=== PATIENT | male | born 1955 | race Caucasian/White ===

== ENCOUNTER → 2024-04-30 06:34 | Day surgery (SDC) | payer MEDICARE, OTHER, SELFPAY | LOC: GI 06:34 | PROVIDERS: ATTENDING PHYSICIAN Internal Medicine Gastroenterology | DX: Z12.11 Encounter for screening for malignant neoplasm of colon (principal); K57.30 Diverticulosis of large intestine without perforation or abscess without bleeding; K64.8 Other hemorrhoids; Z86.010 Personal history of colon polyps | CPT/HCPCS: 45378 ==

== ENCOUNTER 2024-06-01 22:46 | Emergency (ER) | payer MEDICARE, OTHER, SELFPAY ==
[2024-06-01 22:48] VITALS: BP 187/128
[2024-06-01 23:29] VITALS: BP 166/114
[2024-06-02] VITALS (8 sets, daily range): BP systolic 114–149; BP diastolic 76–114; BMI 29.0
[2024-06-02] MEDS: NSS 1000 IV (00:28)
[2024-06-02 00:38] LABS: % Basophils 0.8 % (0-2); % Eosinophils 3.5 % (0-6); % Immature Granulocytes 0.3 % (0-0.5); % Lymphocytes 22.3 % (20.5-51.1); % Monocytes 11.3 % (1.7-9.3); % Neutrophils 61.8 % (42.2-75.2); Absolute Basophils 0.1 10^3/uL (0-0.2); Absolute Eosinophils 0.2 10^3/uL (0-0.7); Absolute Lymphocytes 1.3 10^3/uL (1.2-3.4); Absolute Monocytes 0.7 10^3/uL (0.1-0.6); Absolute Neutrophils 3.7 10^3/uL (1.4-6.5); Hematocrit 38.4 % (39.0-52.0); Hemoglobin 13.4 g/dL (13.0-18.0); Mean Corp Hgb Conc. 34.9 g/dL (33.0-37.0); Mean Corpuscular Hgb 30.7 pg (27.0-31.0); Mean Corpuscular Volume 88.1 fL (80.0-94.0); Mean Platelet Volume 9.5 fL (7.4-10.4); Nucleated Red Blood Cells % 0 % (-); Platelet Count 196 10^3/uL (130-400); Red Blood Cell Count 4.36 10^6/uL (4.70-6.10); Red Cell Dist. Width 12.7 % (11.5-14.5); White Blood Cell Count 5.9 10^3/uL (4.8-10.8)
[2024-06-02 00:53] LABS: ALT (SGPT) 19 U/L (0-50); AST (SGOT) 30 U/L (17-59); Albumin 4.8 g/dl (3.5-5.0); Alkaline Phosphatase 79 U/L (38-126); Blood Urea Nitrogen 20 mg/dl (9-20); Calcium 9.7 mg/dl (8.4-10.2); Carbon Dioxide 25 mmol/L (22-30); Chloride 106 mmol/L (98-107); Estimated Creatinine Clearance 91 ml/min; Glucose 93 mg/dl (70-99); INR 1.08; PT 13.8 Sec (11.4-14.6); Potassium 4.5 mmol/L (3.5-5.1); Sodium 142 mmol/L (135-145); Total Bilirubin 0.4 mg/dl (0.2-1.3); eGFR > 60.00
[2024-06-02 01:04] LABS: Troponin I < 0.012 ng/ml
--- NOTE | 2024-06-02 01:24 | ED.GENMED ---
History of Present Illness
General
Chief Complaint: Heart Rate Problem
Time Seen by Provider: 06/01/24 23:28
History of Present Illness
History of Present Illness:
68-year-old male with history of Parkinson's, hyperlipidemia, history of CAD status post stenting, hypertension presenting to the emergency department for swelling to the left ankle. Patient arrives with , and they note that earlier this
evening, they noted that his left ankle was swollen. is a nurse. She checked his heart rate, and it was elevated. She then checked his blood pressure, also elevated. They waited a few hours, however vitals did not improve, prompting him to
come to the hospital. They report that yesterday they return from a 5-hour car ride. Patient otherwise denies any history of blood clots. He denies any difficulty breathing or chest pain. He denies any palpitations. He denies any pain to the
lower extremity or any numbness or tingling. He denies fever or systemic symptoms. He denies additional acute medical complaints.
Past History
Past History
ED Past Medical History: HTN, Hypercholesterolemia and Other (Parkinson's)
Social History
Tobacco: Non-smoker
Personal:
Employment: Employed
Phy Exam
Physical Exam
Physical Exam:
General: Well-appearing, no clinical signs of dehydration, nontoxic and in no acute distress
HEENT: protecting airway
Neck: appears supple
CV: Tachycardic, regular rhythm, no evidence of cyanosis
Resp: No accessory muscle use, no increased work of breathing, lungs clear to auscultation bilaterally
Abd: Soft and non-distended, no tenderness to palpation, normal bowel sounds
Extremities: No deformities, mild swelling to the left ankle. No redness or warmth. Distal sensation and pulses intact. No pain to palpation.
Neuro: alert, no focal neurologic deficit
: deferred
Rectal: deferred
Psych: Normal affect
Skin: Intact
Scores
[id number] Score for Afib Stroke Risk
Age in Years (65=0, 65-74=1, >/=75=2): 65-74
Sex (Female=+1): Male
Congestive Heart Failure History (Yes=+1): No
Hypertension History (Yes=+1): Yes
Stroke/TIA/Thromboembolism History (Yes=+2): No
Vascular Disease History (Yes=+1): Yes
Diabetes Mellitus (Yes=+1): No
Score: 3
Anticoagulation Recommendations: Recommend anticoagulation (as validated in nonvalvular fib)
Course
Orders/Labs/Results
Orders:
Orders
06/01/24 22:51
Electrocardiogram (*1) Urgent
Reason for Study: Palpitations
06/01/24 22:52
EKG- Treatment ONCE
06/02/24 00:02
0.9% Sodium Chloride 1000 ml [Nss] 1,000 ml IV BOLUS
06/02/24 00:03
CT Chest Pe Study Urgent
Comment:
Reason For Exam: tachy, LLE swelling
US Periph Venous LOWER Ext LT Urgent
Comment:
Reason For Exam: swelling, recent travel
06/02/24 00:26
Complete Blood Count/With Diff Urgent
Comprehensive Metabolic Panel Urgent
PTT Urgent
Prothrombin Time Urgent
Troponin I Urgent
06/02/24 02:11
Diltiazem HCl [Cardizem] 15 mg IV NOW STA
06/02/24 02:28
Metoprolol [Lopressor] 5 mg IV NOW STA
06/02/24 02:39
EKG [Electrocardiogram (*1)] Urgent
Reason for Study: Atrial Fibrillation
EKG- Treatment ONCE
06/02/24 02:53
Apixaban [Eliquis] 5 mg PO NOW STA
Abnormal Lab Results
06/02/24
00:26
RBC 4.36 L 10^6/uL
(4.70-6.10)
Hct 38.4 L %
(39.0-52.0)
Absolute Monos (auto) 0.7 H 10^3/uL
(0.1-0.6)
Monocytes % 11.3 H %
(1.7-9.3)
06/02/24 00:26
06/02/24 00:26
Vital Signs
Initial and Last Documented VS:
Initial Vital Signs
Temp Pulse Resp BP Pulse Ox
98.1 F 132 17 187/128 98
06/01/24 22:48 06/01/24 22:48 06/01/24 22:48 06/01/24 22:48 06/01/24 22:48
Last Documented Vital Signs
Temp Pulse Resp BP Pulse Ox
98.1 F 116 13 143/98 98
06/01/24 22:48 06/02/24 02:00 06/02/24 02:00 06/02/24 01:30 06/02/24 00:29
MDM/Problems Addressed
MDM/Problems Addressed:
68-year-old male with history of Parkinson's disease, hypertension, CAD with stenting presenting for swelling to the left ankle with tachycardia. Vital signs on arrival significant for tachycardia and hypertension.
On exam, patient resting comfortably, no acute distress or discomfort. Overall benign examination with the exception of patient's heart rate. EKG obtained, appears sinus. Patient does have swelling to the left ankle without pain or redness. No
signs of infection. Patient reports recent travel, 5-hour car ride. In the setting of left lower extremity swelling, tachycardia, travel, immediate concern for PE. Patient high risk so plan for CT PE study. Will also obtain DVT ultrasound and
laboratory analysis. Patient otherwise without chest pain, lower suspicion for ACS.
01:00 - Labs unremarkable. DVT ultrasound negative. Pending CT chest. Blood pressure has improved without intervention.
02:20 -patient's heart rate remains elevated, and consistently jumping up and down, concern for possible atrial fibrillation. Trial of diltiazem, without significant impact. Will try metoprolol and repeat EKG. Patient not candidate for
cardioversion, unclear when abnormal heart rate began.
03:00 -heart rate now controlled after metoprolol. Repeat EKG shows a flutter at a rate of 84. Patient remains asymptomatic. Blood pressure has normalized. On reassessment, patient now appears to be sinus rhythm, HR 60-70s. At this suspect
paroxysmal A-fib/a flutter. Patient's Ernesto Vasc score is 3. Feel patient warrants anticoagulation. Given that he is currently rate controlled, on metoprolol at baseline, follows with cardiology, feel reasonable to be discharged with close
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 Will start on Eliquis. Patient and at bedside in agreement. Strict return precautions however were communicated and patient verbalized understanding
*EKG
Interpreted by ED Provider?: Yes
EKG Intrepretation Date: 06/02/24
EKG Intrepretation Time: 00:15
Interpretation: abnormal
Comparison EKG: changes noted
Heart Rate: 119
Rate: tachycardiac
Rhythm: sinus
[place]: normal axis
Interval: normal interval
QRS Pattern: normal QRS
Ischemia: non-specific ST changes
*Critical Care Note
Total Time (30-74mins, 75-104mins- exclusive of procedures): Not Applicable
ED Attending Note
-
Portions of this chart may have been created with voice recognition software.� Occasional wrong word or��sound alike� substitutions may have occurred due to the inherent limitations of voice recognition software.
Discharge Plan
Departure
Patient Disposition: Home (Routine Discharge)
Date of Disposition: 06/02/24
Time of Disposition: 03:03
Patient with high blood pressure during this ER visit?: Yes
Condition: Good
Discharge Problem:
HTN (hypertension), Atrial fibrillation and flutter
Instructions: Atrial Fibrillation (DC), BLOOD PRESSURE
Prescriptions:
New
Eliquis 5 mg tablet
5 mg PO BID 30 Days Qty: 60 0RF
No Action
aspirin 81 MG tablet,chewable
81 mg PO DAILY
ramipril 10 MG capsule
5 mg PO DAILY
Centrum 1 EACH tablet
1 tab PO DAILY
atorvastatin 20 MG tablet
20 mg PO QPM Qty: 90 3RF
metoprolol succinate 25 MG tablet extended release 24 hr
25 mg PO DAILY Qty: 90 3RF
nitroglycerin 0.4 MG tablet, sublingual
0.4 mg sublingual [id number] PRN (Reason: chest pain)
gabapentin 300 MG capsule
600 mg PO HS
carbidopa-levodopa 1 TABLET tablet
1.5 tab PO QID
rasagiline [Azilect] 1 MG tablet
0.5 mg PO DAILY
omega 0-cvz-tzj-fish oil 1 EACH capsule
1,200 mg PO HS
gabapentin 300 MG capsule
300 mg PO DAILY
Referrals:
Blaze Gusman Jr., DO [Family Provider] -
Remigio Damon DO [Active] - (new onset atrial fibrillation)
Activity Restrictions/Additional Instructions:
You were seen in the emegency department for elevated heart rate
You were found to have atrial fibrillation. You were started on Eliquis which is a blood thinner. Please take twice a day. You are already on metoprolol, which will help control your heart rate. If your heart rate is greater than 100 without
exertional activity, take an additional tablet. Please call your high school music director for an appointment as soon as possible.
Please follow-up closely with your primary care physician.
Return to the emergency department for any worsening of your symptoms, or any development of chest pain, difficulty breathing, abdominal pain with persistent vomiting and inability to tolerate food or liquid by mouth (concern for dehydration),
weakness, lightheadedness, feeling like you are going to pass out, headache or confusion, fever greater than 100.4, or any additional symptoms that are concerning to you.
Thank you for choosing [facility].
Interventions
Interventions:
*Risk Screen - Suicide Last Done: 06/02/24 00:35
*General Assessment Last Done: 06/02/24 00:29
*Neglect/Abuse Screening Last Done: 06/02/24 00:35
ED- Fall Risk Assessment Last Done: 06/02/24 00:29
*ED COVID-19 Vaccine History Last Done: 06/02/24 00:29
ED- Cardiac Assessment Last Done: 06/02/24 00:29
ED- Pulmonary Assessment Last Done: 06/02/24 00:29
Discharge Date and Time
Print Language: ROMANIAN
[2024-06-02] MEDS: CARDIZEM 15 MG IV (02:19)
[2024-06-02] MEDS: LOPRESSOR 5 MG IV (02:43)
[2024-06-02] MEDS: ELIQUIS 5 MG PO (03:37)
== END 2024-06-02 03:40 | disposition home or self-care (01) ==
LOC: EMR 22:46
PROVIDERS: EMERGENCY PHYSICIAN Student in an Organized Health Care Education/Training Program; FAMILY PHYSICIAN Family Medicine
DX: M25.472 Effusion, left ankle (principal); R60.0 Localized edema; I48.91 Unspecified atrial fibrillation; I10 Essential (primary) hypertension; I48.92 Unspecified atrial flutter; G20.A1 Parkinson's disease without dyskinesia, without mention of fluctuations; I25.10 Atherosclerotic heart disease of native coronary artery without angina pectoris; E78.00 Pure hypercholesterolemia, unspecified; Z88.0 Allergy status to penicillin
CPT/HCPCS: 96361; 71275; 80053; 84484; 85025; 85610; 85730; 93005; 93971; 96374; 96375; 99284; Q9967

== ENCOUNTER → 2024-06-20 12:45 | Outpatient (REF) | payer MEDICARE, OTHER, SELFPAY | LOC: RCS 12:45 | PROVIDERS: ATTENDING PHYSICIAN Physician Assistant; FAMILY PHYSICIAN Family Medicine | DX: I48.92 Unspecified atrial flutter (principal); I10 Essential (primary) hypertension; I77.9 Disorder of arteries and arterioles, unspecified | CPT/HCPCS: 93306 ==

== ENCOUNTER → 2024-07-19 06:42 | Day surgery (SDC) | payer MEDICARE, OTHER, SELFPAY ==
--- NOTE | 2024-07-19 09:37 | ITS.CL.CARDI ---
[employer] - Cardioversion
Cardioversion
Procedure Report:
Procedure: SELIN-guided electrical cardioversion
Pre-operative diagnosis: Persistent atrial flutter
Post-operative diagnosis: Persistent atrial flutter status post DC cardioversion to sinus rhythm
Anesthesia: MAC
Attending Physician: Charles Flores MD
Procedure Description: The patient was brought to the electrophysiology laboratory in the fasting state. Informed consent was obtained from the patient prior to the start of the procedure. Adherence to anticoagulation was confirmed. Electrodes were
placed on the patient and connected to an external defibrillator. Monitoring of blood pressure, ECG tracings, and pulse oximetry was initiated. The pads were applied to the patient in the anterior and posterior positions. The patient was sedated by
the anesthesiologist. A SELIN (reported separately) was performed prior to the cardioversion. No left atrial or left atrial appendage thrombus was seen. After the SELIN probe was removed 50, 200 and 360 joule biphasic synchronized shocks were delivered
to the patient under MAC anesthesia. Sinus rhythm was successfully restored. The patient recovered uneventfully from MAC anesthesia. There were no immediate post-procedure complications. The patient left the lab in good condition. The attending
physician was present throughout the entire procedure.
Impression: Successful SELIN-guided direct current cardioversion with zoroastrian of sinus rhythm after 50, 200 and 360 joule biphasic synchronized shocks.
== END ==
LOC: CATH 06:42
PROVIDERS: ATTENDING PHYSICIAN Internal Medicine Cardiovascular Disease; FAMILY PHYSICIAN Family Medicine; OTHER PHYSICIAN Nuclear Medicine Nuclear Cardiology
DX: I48.19 Other persistent atrial fibrillation (principal); I48.92 Unspecified atrial flutter; I08.3 Combined rheumatic disorders of mitral, aortic and tricuspid valves; I25.10 Atherosclerotic heart disease of native coronary artery without angina pectoris; I10 Essential (primary) hypertension; E78.00 Pure hypercholesterolemia, unspecified; Z95.5 Presence of coronary angioplasty implant and graft; G20.A1 Parkinson's disease without dyskinesia, without mention of fluctuations; Z79.82 Long term (current) use of aspirin; Z79.01 Long term (current) use of anticoagulants
CPT/HCPCS: 93312; 93320; 93325; 92960; 93005

== ENCOUNTER → 2024-10-03 14:40 | Outpatient (REF) | payer MEDICARE, OTHER, SELFPAY | LOC: MRI 3T 14:40 | PROVIDERS: ATTENDING PHYSICIAN Physician Assistant Surgical; FAMILY PHYSICIAN Family Medicine | DX: M51.24 Other intervertebral disc displacement, thoracic region (principal); M54.6 Pain in thoracic spine | CPT/HCPCS: 72146 ==

== ENCOUNTER 2025-02-14 06:49 | Day surgery (SDC) | payer MEDICARE, OTHER, SELFPAY | END 2025-02-14 09:05 | disposition home or self-care (01) | LOC: CATH 06:49 | PROVIDERS: ATTENDING PHYSICIAN Nuclear Medicine Nuclear Cardiology; FAMILY PHYSICIAN Family Medicine | DX: I48.0 Paroxysmal atrial fibrillation (principal); I08.3 Combined rheumatic disorders of mitral, aortic and tricuspid valves; I70.0 Atherosclerosis of aorta; I10 Essential (primary) hypertension; I25.10 Atherosclerotic heart disease of native coronary artery without angina pectoris; G20.A1 Parkinson's disease without dyskinesia, without mention of fluctuations; E78.5 Hyperlipidemia, unspecified; Z95.5 Presence of coronary angioplasty implant and graft; G47.33 Obstructive sleep apnea (adult) (pediatric); I77.9 Disorder of arteries and arterioles, unspecified; I48.92 Unspecified atrial flutter; R00.2 Palpitations; I71.20 Thoracic aortic aneurysm, without rupture, unspecified; Z79.82 Long term (current) use of aspirin; M48.00 Spinal stenosis, site unspecified; M54.10 Radiculopathy, site unspecified; Z79.899 Other long term (current) drug therapy; Z79.01 Long term (current) use of anticoagulants; Z88.0 Allergy status to penicillin; Z88.8 Allergy status to other drugs, medicaments and biological substances | CPT/HCPCS: 93312; 93320; 93325 ==

== ENCOUNTER 2025-02-15 05:55 | Day surgery (SDC) | payer MEDICARE, OTHER, SELFPAY ==
[2025-02-04 10:18] VITALS: BMI 27.3
[2025-02-15] VITALS (11 sets, daily range): BP systolic 128–166; BP diastolic 76–91; BMI 27.3
--- NOTE | 2025-02-15 07:25 | PTCARENOTE ---
Dr Palmer at bedside. Directed pt to take his dose of crexont with a small sip of water. Last dose and time adjusted on pt's medication list.
--- NOTE | 2025-02-15 10:51 | ITS.CL.ABL ---
Director Of Physical Security - Ablation
Ablation
Procedure Report:
Primary Furniture Upholsterer: Dr Damon
Procedure Date: 02/15/2025
Procedure
Electrophysiology Study, with RA, CS pacing and recording
Radiofrequency Ablation for Counterclockwise Cavotricuspid Isthmus-dependent Right Atrial Flutter
Three-dimensional Electroanatomic Mapping and Navigation
Patient History
See H&P for complete details
Patient is a pleasant 69-year-old male with past medical history significant for hypertension, coronary artery disease, carotid artery disease, mixed lipidemia, sleep apnea on CPAP, Parkinson's, paroxysmal symptomatic typical atrial flutter.
Patient had no documentation or demonstration of atrial fibrillation by ECG. ECGs demonstrated typical atrial flutter.
Method
After informed consent was obtained, the patient was brought to the EP lab in a post-absorptive, non-sedated state. A peripheral IV was in place. Continuous electrocardiography, blood pressure and pulse oximetry monitoring were initiated and
cardioversion / defibrillator patch electrodes were positioned on the chest in an anterior-posterior orientation. Sedation was administered via the anesthesia services. A time-out was called. Local anesthesia was administered at the right femoral
vein access site. Vascular access was achieved using ultrasound (images saved to record) and modified Seldinger technique, and 3 sheaths were placed.
The patient entered the room in sinus rhythm. A multipolar catheter were advanced to the coronary sinus. A mapping / ablation catheter was used to record and pace. Intracardiac ultrasound (ICE) was utilized for structural assessment and monitoring.
Tachycardia was non-inducible. Three-dimensional electroanatomic mapping was utilized. Clockwise and counterclockwise trans-isthmus times were determined prior to ablation. Catheter ablation in the right atrium was performed as described below
under CS pacing. Ablation continued until a line was complete from the tricuspid valve annulus to the IVC-RA junction. Clockwise and counterclockwise trans-isthmus times were determined, and RA activation patterns confirmed bidirectional block.
Interval measurements in NSR were made. A waiting period was observed and evidence of breakthrough was noted at the middle of the CTI ablation line. Additional ablation performed. A waiting period was observed, testing performed again, and the
procedure was concluded. No inducible arrhythmia was noted during EPS.
At the end of the procedure, all catheters and sheaths were removed, hemostasis was assured in the standard fashion with [id number] stitch, and the patient was taken to the recovery area in stable condition.
Baseline Intervals:
Rhythm: Sinus rhythm
NH: 191 ms
QRS: 83 ms
QT: 283 ms
QTc: 402 ms
Post-Procedure Intervals:
NH: 194 ms
QRS: 95 ms
QT: 395 ms
QTc: 397 ms
AVWB: 450 ms
AERP: 600/280 ms
Mapping and Ablation
Utilizing electroanatomic three-dimensional navigation, a 3.5 mm tip [employer] Mobile SE irrigated ablation catheter was advanced to the right atrium with the assistance of an 11.5 Fr Agilis steerable long sheath. An electroanatomic three-dimensional map
of the right atrium was constructed, with careful attention to anatomic landmarks, including the coronary sinus, IVC-RA and SVC-RA junction, tricuspid valve annulus, and region of the His bundle electrogram.
An ablation line was created from the tricuspid annulus to the IVC in the 6:00 position (RUSSIAN clock). Power was titrated between 30 and 40 Cole. The line was completed during CS pacing, and bidirectional block was achieved. The ablation line was
mapped to ensure widely spaced double potentials. Following a waiting period, reconnection was noted at the middle of the CTI line for which additional ablation was delivered. Subsequently, following an additional waiting period, bidirectional
block persisted and the procedure was concluded. No arrhythmias were induced during procedure.
Ablation Summary
Total ablation time: 12 minutes 4 seconds
Estimated Blood Loss
<5 mL
Fluoroscopy Time 1.1
Radiation Dose 2.54 mGy
DAP 0.649
Complications
None
Recommendations
-Anticipate same-day discharge if patient meeting clinical metrics
- Bedrest with straight leg precautions for hours
- Resume anticoagulation tonight if patient/groins stable
- Continue remaining home medications as indicated
- Follow-up in clinic as scheduled
Brandon Chau DO, FACC, FHRS
Clinical Cardiac Electrophysiology
cc: Remigio Damon DO; Blaze Gusman MD
== END 2025-02-15 15:05 | disposition home or self-care (01) ==
LOC: CATH 05:55
PROVIDERS: ATTENDING PHYSICIAN Internal Medicine Cardiovascular Disease; FAMILY PHYSICIAN Family Medicine; OTHER PHYSICIAN Nuclear Medicine Nuclear Cardiology
DX: I77.9 Disorder of arteries and arterioles, unspecified (principal); I25.10 Atherosclerotic heart disease of native coronary artery without angina pectoris; G47.33 Obstructive sleep apnea (adult) (pediatric); I48.3 Typical atrial flutter; Z95.5 Presence of coronary angioplasty implant and graft; E78.2 Mixed hyperlipidemia; G20.A1 Parkinson's disease without dyskinesia, without mention of fluctuations; I10 Essential (primary) hypertension; I48.0 Paroxysmal atrial fibrillation; R00.2 Palpitations; I71.20 Thoracic aortic aneurysm, without rupture, unspecified; M48.00 Spinal stenosis, site unspecified; M54.10 Radiculopathy, site unspecified; Z79.82 Long term (current) use of aspirin; Z79.899 Other long term (current) drug therapy; Z79.01 Long term (current) use of anticoagulants; Z88.0 Allergy status to penicillin; Z88.8 Allergy status to other drugs, medicaments and biological substances
CPT/HCPCS: C1732; C1894; C1769; C1766; C2630; C1892; C1759; 93005; 93653; 93662